=== PATIENT | male | born 2005 | race Caucasian/White ===

== ENCOUNTER → 2024-01-31 | Outpatient (CLI) | payer SELFPAY | END | disposition home or self-care (01) | LOC: LABSPEC 20:44 | PROVIDERS: Visit Provider Nurse Practitioner | DX: R30.0 Dysuria (principal) | CPT/HCPCS: 87086; 87491; 87591 ==

== ENCOUNTER 2024-03-14 15:21 | Emergency (ER) | payer SELFPAY ==
[2024-03-14 15:21] VITALS: BP 114/69; PULSE 81; RESP 18; TEMP 36.6; O2SAT 100; BMI 20.7
--- NOTE | 2024-03-14 15:44 | EX.ED.DYSGE1 ---
HPI <RENNY Alejandre - Last Filed: 03/14/24 17:15> History of Present Illness Chief Complaint: Abd Pain Narrative Narrative: Patient is a 19-year-old male with no significant medical history presents to the emergency department with complaints of right sided abdominal pain, nausea, vomiting, 1 episode of diarrhea. Patient states this pain started 2 days ago when started in his right flank area, is then migrated down to his right lower quadrant. Patient's the pain comes and goes. He did have 1 episode of vomitus yesterday, and 1 episode of diarrhea. He states the pain is minimal at this time. He is here with his girlfriend for evaluation. Patient states his diet is normal other than he did have seafood yesterday. PFSH <RENNY Alejandre - Last Filed: 03/14/24 17:15> PFS Medical History no medical history Home Medications ?Medication ?Instructions ?Recorded ?Last Taken ?Type NK 03/14/24 Unknown History Allergy/AdvReac Type Severity Reaction Status Date / Time No Known Allergies Allergy Verified 03/14/24 15:56 Surgical History no surgical history Social History Smoking Status: Never smoker ROS <RENNY Alejandre - Last Filed: 03/14/24 17:15> ROS ED ROS Narrative Constitutional: Negative for fever, chills, weight loss, weakness Eyes: Negative for vision loss, vision change, double vision ENT: Negative for any sore throat, ear pain, congestion Cardiovascular: Negative for any chest pain, tightness, palpitations Respiratory: Negative for any cough, sputum production, hemoptysis, dyspnea, dyspnea on exertion, orthopnea Gastrointestinal: Negative for any constipation, blood in stool, blood in vomit. Positive for abdominal pain, nausea, vomiting, diarrhea : Negative for any urinary frequency, dysuria, retention, blood in urine Muscle skeletal: Negative for any neck pain, back pain Neurological: Negative for any headache, syncope, dizziness Skin: Negative for any rashes, itching, abrasions, lacerations Psychiatric: Negative for any depression, anxiety, stress, suicidal ideation, homicidal ideation Hematologic: Negative for any excessive bruising, easy bleeding EXAM <RENNY Alejandre - Last Filed: 03/14/24 17:15> Physical Exam Narrative Exam Narrative: Vital signs reviewed. HEET: Head normocephalic atraumatic, TMs clear bilaterally. Posterior pharynx is clear, moist mucous membranes. Nares clear bilaterally. Neck: Supple with no lymphadenopathy or tenderness. No signs of meningismus. Cardiac: Regular rate and rhythm no murmurs gallops or rubs, equal peripheral pulses bilaterally. Respiratory: Lungs clear to auscultation bilaterally. No chest tenderness. Abdomen: Soft, nontender, nondistended. No abdominal bruit or pulsatile masses. No hepatosplenomegaly Extremities: No peripheral edema, no signs of gross trauma or deformity. Active full range of motion of all extremities. Neuro: Cranial nerves II through XII intact, no focal neurological deficits. Skin: Clean dry and intact with no rash, purpura, petechiae, vesicles or pustules. Backs/flank: No CVA tenderness, no midline spinal tenderness, no deformity. Psych: Normal mood and affect. No SI, HI or acute psychosis. Const Vital Signs: 03/14/24 15:21 03/14/24 17:21 Temperature 97.8 F 98.9 F Temperature Source Temporal Pulse Rate 81 64 Respiratory Rate 18 12 Blood Pressure 114/69 109/67 Blood Pressure Mean 84 81 Pulse Ox 100 99 Oxygen Delivery Method Room Air <Dr. Alen Edwards MD - Last Filed: 03/14/24 19:17> Physical Exam Const Vital Signs: 03/14/24 15:21 03/14/24 17:21 Temperature 97.8 F 98.9 F Temperature Source Temporal Pulse Rate 81 64 Respiratory Rate 18 12 Blood Pressure 114/69 109/67 Blood Pressure Mean 84 81 Pulse Ox 100 99 Oxygen Delivery Method Room Air [facility] <RENNY Alejandre - Last Filed: 03/14/24 17:15> [facility] Lab Data Labs: Laboratory Results - last 24 hr 03/14/24 03/14/24 15:50 16:30 WBC 4.4 RBC 5.09 Hgb 14.5 Hct 42.5 MCV 83.5 MCH 28.5 MCHC 34.1 RDW Std Deviation 38.0 RDW Coeff of Derick 12.5 Plt Count 218 MPV 9.8 Immature Gran % (Auto) 0.000 Neut % (Auto) 63.5 Lymph % (Auto) 23.2 [place] % (Auto) 11.7 H Eos % (Auto) 1.4 Baso % (Auto) 0.2 Absolute Neuts (auto) 2.8 Absolute Lymphs (auto) 1.01 Nucleated RBC % 0 Sodium 139 Potassium 3.6 Chloride 108 H Carbon Dioxide 25.0 Anion Gap 6 BUN 10 Creatinine 0.88 Estim Creat Clear Calc 124.57 Est GFR (MDRD) Af Amer 143 Est GFR (MDRD) Non-Af 118 BUN/Creatinine Ratio 11.4 Glucose 117 H Calcium 10.5 H Total Bilirubin 1.50 H AST 18 ALT 17 Alkaline Phosphatase 110 Total Protein 7.7 Albumin 4.2 Globulin 3.5 Albumin/Globulin Ratio 1.2 Lipase 14 Urine Color Yellow Urine Clarity Clear Urine pH 7.0 Ur Specific Hubbard 1.005 Urine Protein Negative Urine Glucose (UA) Normal Urine Ketones Negative Urine Occult Blood Negative Urine Nitrite Negative Urine Bilirubin Negative Urine Urobilinogen Normal Ur Leukocyte Esterase Negative Urine RBC 0 SEEN Urine WBC 0 SEEN Ur Squamous Epith Cells 0 SEEN Urine Bacteria 0 SEEN Urine Mucus 0 SEEN Treatment and Re-Evaluation :: Differential diagnosis includes however is not limited to: Viral syndrome, gastritis, constipation, dehydration, electrode abnormality, acute appendicitis, bowel obstruction, diverticulitis Patient appears to be in no obvious respiratory distress vital signs are stable, patient is nontoxic. Presenting to the emergency department with complaints of ongoing right lower quadrant abdominal pain. Patient's physical examination was grossly unremarkable. On deep palpation of the right lower quadrant, patient had no pain on palpation. Patient no pain to the flank or CVA tenderness. At this time, patient received some basic laboratory values, CBC CMP lipase. IV fluids Zofran and Toradol will be given. Patient also receive urinalysis. Patient be reevaluated. At this time, do not believe the patient needs a CT scan at this time as my suspicion for appendicitis is low. On reevaluation, the patient was feeling better. The patient's laboratory values were grossly unremarkable, patient's chemistries were unremarkable, glucose was slight elevated 117, total bilirubin is 1.50, I believe this is nondiagnostic. Lipase was negative. Patient urinalysis was negative for infection. At this time, I do not believe the patient is having any sort of acute surgical emergency. Patient agrees, states he is hungry and like to be discharged. Patient was given return precautions, patient stable for discharge. <Dr. Alen Edwards MD - Last Filed: 03/14/24 19:17> [facility] Narrative Medical decision making narrative: I have personally performed a face to face assessment of the patient and have reviewed the CHYNA Note. I performed a substantive portion of the visit including all aspects of the following. My oden findings include: History is remarkable 19-year-old who presents with right-sided pain is predominantly over the lower lateral right ribs. He denies history of PE DVT. Denies cough, shortness of breath pleuritic pain. Denies history of trauma. Not noted a rash. He denies intolerance to greasy or fried foods. There is no family history of biliary disease. He denies change in color of his urine and denies discomfort with urination. He has no history of renal or ureterolithiasis. Exam is unremarkable. HEENT exam is unremarkable and vital signs are normal. Lungs are clear auscultation with symmetric breath sounds. Patient has no reproducible chest or abdominal pain. Abdomen is soft nontender. There is no paraspinal megaly. Negative clinical Carrera sign. There is no CVA tenderness noted. Medical Decision Making suspect patient's pain is muscle skeletal even though is not reproducible. His history is not consistent with PE and patient is PERC negative. Other additions or changes: [None] Lab Data Attestation: I reviewed the patient's lab results. Lab results narrative: CBC is unremarkable. Comprehensive metabolic panel reveals slight elevation of glucose of 117 with a normal CO2 anion gap. Total bili is slightly elevated 1.50. Labs: Laboratory Results - last 24 hr 03/14/24 03/14/24 15:50 16:30 WBC 4.4 RBC 5.09 Hgb 14.5 Hct 42.5 MCV 83.5 MCH 28.5 MCHC 34.1 RDW Std Deviation 38.0 RDW Coeff of Derick 12.5 Plt Count 218 MPV 9.8 Immature Gran % (Auto) 0.000 Neut % (Auto) 63.5 Lymph % (Auto) 23.2 [place] % (Auto) 11.7 H Eos % (Auto) 1.4 Baso % (Auto) 0.2 Absolute Neuts (auto) 2.8 Absolute Lymphs (auto) 1.01 Nucleated RBC % 0 Sodium 139 Potassium 3.6 Chloride 108 H Carbon Dioxide 25.0 Anion Gap 6 BUN 10 Creatinine 0.88 Estim Creat Clear Calc 124.57 Est GFR (MDRD) Af Amer 143 Est GFR (MDRD) Non-Af 118 BUN/Creatinine Ratio 11.4 Glucose 117 H Calcium 10.5 H Total Bilirubin 1.50 H AST 18 ALT 17 Alkaline Phosphatase 110 Total Protein 7.7 Albumin 4.2 Globulin 3.5 Albumin/Globulin Ratio 1.2 Lipase 14 Urine Color Yellow Urine Clarity Clear Urine pH 7.0 Ur Specific Hubbard 1.005 Urine Protein Negative Urine Glucose (UA) Normal Urine Ketones Negative Urine Occult Blood Negative Urine Nitrite Negative Urine Bilirubin Negative Urine Urobilinogen Normal Ur Leukocyte Esterase Negative Urine RBC 0 SEEN Urine WBC 0 SEEN Ur Squamous Epith Cells 0 SEEN Urine Bacteria 0 SEEN Urine Mucus 0 SEEN Discharge Plan Triage Chief Complaint: Abd Pain ED Midlevel Provider: Rakesh Fay ED Provider: Alen Edwards Dx/Rx/DC Orders Clinical Impression: Abdominal pain Instructions: ED Pain, Acute, Uncertain Cause, ED Vomiting (Adult) Prescriptions: No Action NK Primary Care Provider: Care Physician,No Primary Referrals: Care Physician,No Primary [Primary Care Provider] - Activity Restrictions/Additional Instructions: Please follow-up outpatient. Print Language: Tongan Disposition Disposition: Home, Self Care Discharge Date/Time: 03/14/24 17:25
[2024-03-14] MEDS: 0.9% Normal Saline (1000mL) 1,000 ML 999 ML IV (15:47)
[2024-03-14] MEDS: Ketorolac 15 MG/ML Vial IV (15:48)
[2024-03-14] MEDS: Ondansetron 4 MG/2 ML Vial IV (15:48)
[2024-03-14 15:57] LABS: Absolute Lymphocyte Count 1.01 X10^3/uL (0.83-4.51); Absolute Neutrophil Count 2.8 X10^3/uL (2.0-7.7); Basophil# 0.01 X10^3/uL; Basophil% 0.2 % (0-1); Eosinophil# 0.06 X10^3/uL; Eosinophils% 1.4 % (0-5); Hematocrit 42.5 % (40-54); Hemoglobin 14.5 g/dL (13.0-16.5); Lymphocyte # 1.01 X10^3/ul (0.83-4.51); Lymphocyte % 23.2 % (19-41); Mean Corp Hgb Conc 34.1 g/dL (32-36); Mean Corpuscular Hgb 28.5 pg (27.0-32.0); Mean Corpuscular Volume 83.5 fL (80-94); Mean Platelet Vol. 9.8 fl (6.2-12.0); Monocyte# 0.51 X10^3/uL; Monocyte% 11.7 % (0-10); NRBC Flagged by Analyzer 0 % (0-5); Neutrophil # 2.76 X10^3/uL (2.7-7.7); Neutrophil % 63.5 % (47-70); Platelet Count 218 K/mm3 (150-450); RBC Distribution Width CV 12.5 % (11.6-14.6); Red Blood Count 5.09 M/mm3 (4.6-6.2); White Blood Count 4.4 K/mm3 (4.4-11.0)
[2024-03-14 16:20] LABS: ALB/GLOB Ratio 1.2 RATIO (0.9-2.4); AST(SGOT) 18 U/L (15-37); Alanine Aminotransfer ALT/SGPT 17 U/L (16-61); Albumin, Serum 4.2 g/dL (3.2-5.0); Alkaline Phosphatase 110 U/L (45-117); Anion Gap 6 (5-15); BUN 10 mg/dL (7-18); BUN/Creat Ratio 11.4 RATIO (10-20); Calcium,Total 10.5 mg/dL (8.5-10.1); Chloride 108 mmol/L (98-107); Creatinine, Serum 0.88 mg/dL (0.70-1.30); EST Glomerular Filtration Rate 118 mL/min (>60); Est Glom Filt Rate - Afr Amer 143 mL/min (>60); Estimated Creatinine Clearance 124.57 ml/min; Globulin 3.5 g/dL (2.2-4.2); Glucose 117 mg/dL (74-106); Lipase 14 U/L (13-75); Potassium 3.6 mmol/L (3.5-5.1); Protein, Total 7.7 g/dL (6.4-8.2); Sodium Level 139 mmol/L (136-145)
[2024-03-14 16:39] LABS: Bacteria 0 SEEN /hpf (None Seen); Mucous, Urine 0 SEEN /hpf (<or=2+); Red Blood Cells-Urine 0 SEEN /hpf (0-5); Squamous Epithelial Cells - UA 0 SEEN /hpf (0-5); White Blood Cells 0 SEEN /hpf (0-5)
[2024-03-14 16:48] LABS: Color, Urine Yellow (Yellow); Glucose, Dipstick Normal (Normal); Ketone-Dipstick Negative (Negative); Leukocyte Esterase-Dipstick Negative /ul (Negative); Nitrite-Dipstick Negative (Negative); Occult Blood-Urine Negative /ul (Negative); Protein-Dipstick Negative (Negative); Specific Gravity, Urine 1.005 (1.002-1.030); Urine Bilirubin Dipstick Negative (Negative); Urine Clarity Clear (Clear); Urine Urobilinogen Normal (Normal)
[2024-03-14 17:21] VITALS: BP 109/67; PULSE 64; RESP 12; TEMP 37.2; O2SAT 99
== END 2024-03-14 17:25 | disposition home or self-care (01) ==
PROVIDERS: Nurse Practitioner; Emergency Provider Emergency Medicine; Visit Provider Emergency Medicine
DX: R10.31 Right lower quadrant pain (principal); R07.81 Pleurodynia; R11.2 Nausea with vomiting, unspecified; R19.7 Diarrhea, unspecified
CPT/HCPCS: 80053; 81001; 83690; 85025; 96361; 96374; 96375; 99283; J7030; J2405

== ENCOUNTER 2024-04-19 11:24 | Emergency (ER) | payer SELFPAY ==
[2024-04-19 11:25] VITALS: BP 114/64; PULSE 86; RESP 16; TEMP 36.6; O2SAT 97; BMI 21.2
--- NOTE | 2024-04-19 11:33 | EDS_ITS ---
HPI History of Present Illness Chief Complaint: Abd Pain Detail of Chief Complaint: Dental pain and abdominal pain Informant: patient Narrative Narrative: Patient presents secondary to left lower dental pain that started a couple days ago. He states it is right over his wisdom tooth. He did have some leftover amoxicillin and he took 1 dose last evening. Patient states he also gets intermittent left upper quadrant pain. He thinks it may be from a pulled muscle. He has been taking Tylenol for his teeth but denies using anti-inflammatories. No recent trauma or injury. PFSH PFS Medical History no medical history no medical history Home Medications ?Medication ?Instructions ?Recorded ?Last Taken ?Type naproxen 500 mg tablet (Naprosyn) 500 mg PO BID PRN pain #20 tabs 04/19/24 Unknown Rx penicillin V potassium 500 mg 500 mg PO 4X/DAY #40 tabs 04/19/24 Unknown Rx tablet Allergy/AdvReac Type Severity Reaction Status Date / Time No Known Allergies Allergy Verified 04/19/24 11:25 Social History Smoking Status: Never smoker ROS ROS ED Constitutional Constitutional ED: Denies chills or fever(s) Eyes Eyes: Denies discharge from eye(s) ENT ENT ED: Reports other Details: Left lower dental pain ; Denies discharge from eye(s), rhinorrhea or sore throat Cardiovascular Cardiovascular: Denies chest pain Respiratory/Chest Respiratory/Chest: Denies cough or dyspnea Gastrointestinal Gastrointestinal: Reports abdominal pain; Denies diarrhea, nausea or vomiting Genitourinary Genitourinary ED: Denies difficulty urinating or dysuria Musculoskeletal Musculoskeletal: Denies back pain or extremity pain Integumentary Denies Abrasions or rash Neurologic Neurologic: Denies headache(s) or weakness Psychiatric Psychiatric: Denies anxiety or depression Allergic/Immunologic Allergic/Immunologic ED: Denies lip swelling or urticaria EXAM Physical Exam Const Vital Signs: 04/19/24 11:25 Temperature 97.9 F Temperature Source Temporal Pulse Rate 86 Respiratory Rate 16 Blood Pressure 114/64 Blood Pressure Mean 80 Pulse Ox 97 Oxygen Delivery Method Room Air Positive well nourished and well developed General Appearance ED: well developed HEENT Reports moist mucous membranes HEENT Narrative: Intraoral examination reveals mild gum edema around the left third mandibular molar. Tooth does not have much room to erupt. Eyes EOMs intact bilaterally Chest Wall inspection of chest normal and palpation of chest normal Resp normal respiratory effort and clear to auscultation bilaterally Cardio regular rate and regular rhythm GI normal to inspection, nondistended, normoactive bowel sounds and non-tender Extremity normal to inspection Neuro oriented x3 and no sensory deficits noted Motor Exam: strength 5/5 throughout Skin no rashes or lesions noted MDM MDM MDM Narrative Medical decision making narrative: Patient does have dental pain secondary to his wisdom tooth emerging. I do not see evidence of infection at this time, however did discuss with him that the dentist will usually want him on antibiotics for a few days prior to an exam of potential extraction. In light of this I will cover him with Danny Aviles. Patient has no reproducible abdominal pain at this time. It does not sound like he is having significant reflux. He raised concern about spleen, however he has not had recent illness and no recent trauma. He has no reproducible tenderness at this time I do not feel he needs significant workup for this at this time. Discharge Plan Triage Chief Complaint: Abd Pain Other Complaint: Dental ED Provider: Patsy Willard Dx/Rx/DC Orders Clinical Impression: Pain, dental, Abdominal pain Instructions: ED Dental Pain, ED Abdominal Pain Unkn Cause Male... Prescriptions: New penicillin V potassium 500 mg tablet 500 mg PO 4X/DAY Qty: 40 0RF naproxen [Naprosyn] 500 mg tablet 500 mg PO BID PRN (Reason: pain) Qty: 20 0RF Primary Care Provider: Care Physician,No Primary Referrals: Care Physician,No Primary [Primary Care Provider] - Activity Restrictions/Additional Instructions: Follow-up with your dentist as discussed. Please eat when you take anti-inflammatories (naproxen). If you develop heartburn you can take [id number] Prilosec to help with this. Print Language: Estonian Disposition Disposition: Home, Self Care
[2024-04-19 11:57] VITALS: BP 114/64; PULSE 86; RESP 16; TEMP 36.6; O2SAT 97
== END 2024-04-19 11:58 | disposition home or self-care (01) ==
LOC: ED 11:45
PROVIDERS: Emergency Provider Emergency Medicine; Visit Provider Emergency Medicine
DX: K08.89 Other specified disorders of teeth and supporting structures (principal); R10.12 Left upper quadrant pain
CPT/HCPCS: 99283